=== PATIENT | male | born 1985 | race Caucasian/White ===

== ENCOUNTER 2023-05-08 15:04 | Emergency (ER) | payer OTHER ==
[~2023-05-08] VITALS: Ht 170.2 cm; Wt 91.2 kg
[2023-05-08] MEDS ORDERED: NAPR-1164 PO (15:44)
[2023-05-08] MEDS ORDERED: PENI500T PO (15:44)
[2023-05-08 15:51] VITALS: BP 136/77; TEMP 98; O2SAT 100
== END 2023-05-08 15:52 | disposition home or self-care (01) ==
LOC: ER 15:11
DX: K08.89 Other specified disorders of teeth and supporting structures (principal); Z60.2 Problems related to living alone